=== PATIENT | female | born 1930 | race Two or more races ===

== ENCOUNTER 2021-04-10 17:57 | Emergency (ER) | payer MEDICARE, OTHER ==
[~2021-04-10] VITALS: Ht 152.4 cm; Wt 69.4 kg
[2021-04-10 18:32] VITALS: BP 162/67
--- NOTE | 2021-04-10 18:44 | NUR ---
[id number], GLF INSIDE HANDICAPPED RESTROOM AT [facility]. DENIES KO. PT AAOX3, RR EVEN & UNLABORED. DENIES CP, SOB, DIZZINESS, N/V, PAIN AT THIS TIME. AWAITING EVAL BY DANK. WILL CONT TO MONITOR. FAMILY MEMBER AT .
== END 2021-04-10 21:44 | disposition home or self-care (01) ==
LOC: ER 18:15
DX: S09.8XXA Other specified injuries of head, initial encounter (principal); I10 Essential (primary) hypertension; E11.9 Type 2 diabetes mellitus without complications; Z88.0 Allergy status to penicillin; Z95.818 Presence of other cardiac implants and grafts; W01.0XXA Fall on same level from slipping, tripping and stumbling without subsequent striking against object, initial encounter; Y93.89 Activity, other specified; Y92.091 Bathroom in other non-institutional residence as the place of occurrence of the external cause; Y99.8 Other external cause status
CPT/HCPCS: 70450-TC; 72125-TC